=== PATIENT | male | born 1965 | race Caucasian/White ===

== ENCOUNTER 2021-05-05 18:54 | Inpatient (IN) ==
[2021-05-06] MEDS ORDERED: Naloxone 0.4 MG/ML INJ IVP PRN (01:22)
[2021-05-06] MEDS ORDERED: *HR* LORazepam 2 MG/ML VIAL IVP PRN (01:23)
[2021-05-06] MEDS ORDERED: *HR* Labetalol 20 MG/4 ML SYRINGE IVP ONE ×3 (01:25→09:33)
[2021-05-06] MEDS ORDERED: Acetaminophen 325 MG TABLET PO PRN (01:26)
[2021-05-06] MEDS ORDERED: Ondansetron 4 MG/2 ML VIAL IVP PRN (01:26)
[2021-05-06] MEDS ORDERED: 0.9 % Sodium Chloride 1,000 ML IVC SCH ×2 (01:30→02:56)
[2021-05-06] MEDS: *HR* LORazepam 2 MG/ML VIAL IVP PRN ×2 (01:45→03:44)
[2021-05-06] MEDS: Dexmedetomidine HCl 400 MCG/100 ML MLS IVC SCH ×2 (03:15→21:29)
[2021-05-06] MEDS ORDERED: Ipratropium/Albuterol Neb 3 ML IH SCH (04:00)
[2021-05-06] MEDS ORDERED: Furosemide 40 MG/4 ML VIAL IVP ONE (04:00)
[2021-05-06] MEDS ORDERED: Vancomycin 1,250 MG/262.5 ML IV.SOLN IVPB SCH (04:00)
[2021-05-06 04:10] LABS: ABG Base Excess -2 mEq/L (-2 to 3); ABG HCO3 24 mEq/L (21-27); ABG Oxygen Saturation 89 % (95-98); ABG PCO2 41 mmHg (35-45); ABG PH 7.37 pH Units (7.32-7.45); ABG PO2 57 mmHg (85-104); ABG TCO2 25 mEq/L (20-26); Blood Gas Modality BiLevel; Blood Gas Pressure Support 6 cm H2O
[2021-05-06] MEDS ORDERED: Perflutren Lipid Microsphere 1.3 ML in 0.9 % Sodium Chloride 8.7 ML IVP PRN (04:19)
[2021-05-06] MEDS: *HR* Heparin 5,000 UNIT/ML VIAL SQ SCH ×3 (04:47→21:03)
[2021-05-06] MEDS: MethylPREDNISolone 40 MG/ML VIAL IVP SCH ×4 (04:47→23:08)
[2021-05-06] MEDS: Piperacillin/Tazobactam 3.375 GM in 0.9 % Sodium Chloride Mini Bag 100 ML IVPB SCH ×4 (04:48→23:07)
[2021-05-06 05:29] LABS: Hematocrit 35.7 % (37.5-50.1); Immature Granulocytes % 0.7 % (0-4); Lymphocytes # 0.5 K/mcL (0.6-4.6); Lymphocytes % 2.3 %; Mean Corpuscular HGB Conc 33.6 g/dL (31.6-35.5); Mean Corpuscular Hemoglobin 31.2 pg (28.0-33.3); Mean Corpuscular Volume 92.7 fL (83.0-100.0); Mean Platelet Volume 9.5 fL (9.4-12.4); Monocytes # 1.1 K/mcL (0.0-1.3); Monocytes % 5.3 %; Neutrophils # 18.5 K/mcL (1.6-8.9); Platelet Count 318 K/mcL (140-400); Red Blood Count 3.85 M/mcL (4.19-5.50); Red Cell Distribution Width 13.2 % (11.5-14.5); Segmented Neutrophils % 91.7 %; White Blood Count 20.2 K/mcL (4.3-11.1)
[2021-05-06 05:56] LABS: Alanine Aminotransferase 18 Units/L (7-52); Albumin 3.2 g/dL (3.5-5.7); Albumin/Globulin Ratio 0.9 (1.1-2.2); Alkaline Phosphatase 89 Units/L (34-104); Aspartate Amino Transferase 19 Units/L (13-39); BUN/Creatinine Ratio 28 (6-26); Bilirubin,Total 0.4 mg/dL (0.3-1.0); Blood Urea Nitrogen 15 mg/dL (6-20); Calcium 8.3 mg/dL (8.6-10.3); Carbon Dioxide 23 mEq/L (23-29); Chloride 104 mEq/L (98-107); Globulin 3.6 g/dL (2.4-3.5); Glucose 151 mg/dL (70-105); Osmolality,Calculated 280 (280-300); Potassium 4.4 mEq/L (3.5-5.1); Sodium 133 mEq/L (136-145); Total Protein 6.8 g/dL (6.4-8.9); Troponin I 0.16 ng/mL (< 0.04); eGFR For African Americans > 60 (> 60); eGFR For Non-African Americans > 60 (> 60)
[2021-05-06] MEDS: Levalbuterol Neb 1.25 MG/3 ML IH SCH ×5 (07:35→23:27)
[2021-05-06] MEDS: Ipratropium Neb 0.5 MG NEBULIZER IH SCH ×5 (07:35→23:28)
[2021-05-06] MEDS ORDERED: Ipratropium 1 PUFF INHALER IH SCH (08:00)
[2021-05-06] MEDS: Azithromycin 500 MG in 0.9 % Sodium Chloride 250 ML IVPB SCH (08:15)
[2021-05-06] MEDS: Folic Acid 1 MG in 0.9 % Sodium Chloride 50 ML IVPB SCH (17:03)
[2021-05-06] MEDS ORDERED: Thiamine (B-1) 100 MG, Folic Acid 1 MG, MVI, adult with vitamin K 10 ML in 0.9 % Sodi... IVPB SCH (18:00)
[2021-05-06] MEDS: Thiamine (B-1) 100 MG in 0.9 % Sodium Chloride 50 ML IVPB SCH (18:32)
[2021-05-07] MEDS: Dexmedetomidine HCl 400 MCG/100 ML MLS IVC SCH (01:37)
[2021-05-07] MEDS: *HR* LORazepam 2 MG/ML VIAL IVP PRN (04:02)
[2021-05-07] MEDS: Levalbuterol Neb 1.25 MG/3 ML IH SCH ×6 (04:04→23:38)
[2021-05-07] MEDS: Ipratropium Neb 0.5 MG NEBULIZER IH SCH ×6 (04:04→23:38)
[2021-05-07] MEDS: *HR* Heparin 5,000 UNIT/ML VIAL SQ SCH ×3 (04:57→21:27)
[2021-05-07] MEDS: MethylPREDNISolone 40 MG/ML VIAL IVP SCH ×3 (04:57→17:13)
[2021-05-07 05:13] LABS: Basophils % 0.1 %; Hematocrit 35.4 % (37.5-50.1); Hemoglobin 11.3 g/dL (12.9-16.9); Immature Granulocytes % 0.5 % (0-4); Lymphocytes # 0.4 K/mcL (0.6-4.6); Lymphocytes % 2.9 %; Mean Corpuscular HGB Conc 31.9 g/dL (31.6-35.5); Mean Corpuscular Volume 93.9 fL (83.0-100.0); Mean Platelet Volume 9.6 fL (9.4-12.4); Monocytes # 0.9 K/mcL (0.0-1.3); Monocytes % 6.6 %; Platelet Count 334 K/mcL (140-400); Red Blood Count 3.77 M/mcL (4.19-5.50); Red Cell Distribution Width 13.3 % (11.5-14.5); Segmented Neutrophils % 89.9 %; White Blood Count 13.3 K/mcL (4.3-11.1)
[2021-05-07 05:31] LABS: Alanine Aminotransferase 26 Units/L (7-52); Albumin/Globulin Ratio 0.8 (1.1-2.2); Alkaline Phosphatase 77 Units/L (34-104); Aspartate Amino Transferase 26 Units/L (13-39); BUN/Creatinine Ratio 34 (6-26); Bilirubin,Total 0.5 mg/dL (0.3-1.0); Blood Urea Nitrogen 23 mg/dL (6-20); Calcium 8.4 mg/dL (8.6-10.3); Carbon Dioxide 24 mEq/L (23-29); Chloride 105 mEq/L (98-107); Globulin 3.7 g/dL (2.4-3.5); Glucose 152 mg/dL (70-105); Magnesium 2.2 mg/dL (1.6-2.6); Osmolality,Calculated 289 (280-300); Potassium 3.9 mEq/L (3.5-5.1); Sodium 136 mEq/L (136-145); Total Protein 6.7 g/dL (6.4-8.9); eGFR For African Americans > 60 (> 60); eGFR For Non-African Americans > 60 (> 60)
[2021-05-07] MEDS: Piperacillin/Tazobactam 3.375 GM in 0.9 % Sodium Chloride Mini Bag 100 ML IVPB SCH ×2 (08:35→15:46)
[2021-05-07] MEDS: Azithromycin 500 MG in 0.9 % Sodium Chloride 250 ML IVPB SCH (08:36)
[2021-05-07] MEDS: Thiamine (B-1) 100 MG in 0.9 % Sodium Chloride 50 ML IVPB SCH (08:51)
[2021-05-07] MEDS: *HR* Labetalol 20 MG/4 ML SYRINGE IVP PRN ×2 (08:51→11:13)
[2021-05-07] MEDS ORDERED: lisinopriL 20 MG TABLET PO SCH (09:00)
[2021-05-07] MEDS ORDERED: *HR* Labetalol 20 MG/4 ML SYRINGE IVP STA (11:10)
[2021-05-07] MEDS: amLODIPine 5 MG TABLET PO SCH (12:23)
[2021-05-07] MEDS: Nicotine 21 MG PATCH.TD24 TD SCH (12:24)
[2021-05-07] MEDS: niCARdipine 20 MG/200 ML MLS IVC SCH ×6 (14:10→22:41)
[2021-05-07] MEDS ORDERED: *HR* Labetalol 20 MG/4 ML SYRINGE IVP ONE (14:50)
[2021-05-07] MEDS: *HR* HYDROcodone/Acet 5/325 mg TABLET PO PRN ×2 (15:07→21:27)
[2021-05-07] MEDS: hydrALAZINE 25 MG TABLET PO SCH ×2 (15:46→19:22)
[2021-05-07] MEDS: *HR* Labetalol 20 MG/4 ML SYRINGE IVP SCH (17:13)
[2021-05-07] MEDS: Folic Acid 1 MG in 0.9 % Sodium Chloride 50 ML IVPB SCH (17:48)
[2021-05-08] MEDS: *HR* LORazepam 2 MG/ML VIAL IVP PRN (00:31)
[2021-05-08] MEDS: MethylPREDNISolone 40 MG/ML VIAL IVP SCH ×4 (00:31→17:08)
[2021-05-08] MEDS: Piperacillin/Tazobactam 3.375 GM in 0.9 % Sodium Chloride Mini Bag 100 ML IVPB SCH ×3 (00:32→15:26)
[2021-05-08] MEDS: *HR* Labetalol 20 MG/4 ML SYRINGE IVP SCH ×3 (00:32→11:53)
[2021-05-08] MEDS: niCARdipine 20 MG/200 ML MLS IVC SCH ×3 (03:02→21:00)
[2021-05-08 03:25] LABS: Basophils % 0.1 %; Hematocrit 36.4 % (37.5-50.1); Hemoglobin 12.1 g/dL (12.9-16.9); Immature Granulocytes % 0.5 % (0-4); Lymphocytes # 0.4 K/mcL (0.6-4.6); Lymphocytes % 2.7 %; Mean Corpuscular HGB Conc 33.2 g/dL (31.6-35.5); Mean Corpuscular Hemoglobin 30.9 pg (28.0-33.3); Mean Corpuscular Volume 92.9 fL (83.0-100.0); Mean Platelet Volume 9.4 fL (9.4-12.4); Monocytes # 0.7 K/mcL (0.0-1.3); Monocytes % 5.4 %; Neutrophils # 11.6 K/mcL (1.6-8.9); Platelet Count 390 K/mcL (140-400); Red Blood Count 3.92 M/mcL (4.19-5.50); Red Cell Distribution Width 13.4 % (11.5-14.5); Segmented Neutrophils % 91.3 %; White Blood Count 12.8 K/mcL (4.3-11.1)
[2021-05-08 03:44] LABS: Alanine Aminotransferase 24 Units/L (7-52); Albumin 3.1 g/dL (3.5-5.7); Albumin/Globulin Ratio 0.9 (1.1-2.2); Alkaline Phosphatase 72 Units/L (34-104); Aspartate Amino Transferase 17 Units/L (13-39); BUN/Creatinine Ratio 43 (6-26); Bilirubin,Total 0.6 mg/dL (0.3-1.0); Blood Urea Nitrogen 23 mg/dL (6-20); Calcium 8.4 mg/dL (8.6-10.3); Carbon Dioxide 22 mEq/L (23-29); Chloride 106 mEq/L (98-107); Globulin 3.6 g/dL (2.4-3.5); Glucose 146 mg/dL (70-105); Osmolality,Calculated 284 (280-300); Potassium 3.6 mEq/L (3.5-5.1); Sodium 134 mEq/L (136-145); Total Protein 6.7 g/dL (6.4-8.9); eGFR For African Americans > 60 (> 60); eGFR For Non-African Americans > 60 (> 60)
[2021-05-08] MEDS: Levalbuterol Neb 1.25 MG/3 ML IH SCH ×5 (03:54→20:36)
[2021-05-08] MEDS: Ipratropium Neb 0.5 MG NEBULIZER IH SCH ×5 (03:54→20:36)
[2021-05-08] MEDS: *HR* Heparin 5,000 UNIT/ML VIAL SQ SCH ×3 (05:58→21:04)
[2021-05-08] MEDS: Azithromycin 500 MG in 0.9 % Sodium Chloride 250 ML IVPB SCH (09:03)
[2021-05-08] MEDS: hydrALAZINE 25 MG TABLET PO SCH ×3 (09:04→20:33)
[2021-05-08] MEDS: amLODIPine 5 MG TABLET PO SCH (09:04)
[2021-05-08] MEDS: Nicotine 21 MG PATCH.TD24 TD SCH (09:07)
[2021-05-08] MEDS: *HR* HYDROcodone/Acet 5/325 mg TABLET PO PRN ×2 (09:08→17:07)
[2021-05-08] MEDS: Thiamine (B-1) 100 MG in 0.9 % Sodium Chloride 50 ML IVPB SCH (12:05)
[2021-05-08] MEDS ORDERED: *HR* Labetalol 20 MG/4 ML SYRINGE IVP PRN (12:36)
[2021-05-08] MEDS ORDERED: Piperacillin/Tazobactam 3.375 GM VIAL ONE (15:26)
[2021-05-08] MEDS: Folic Acid 1 MG in 0.9 % Sodium Chloride 50 ML IVPB SCH (18:52)
[2021-05-08] MEDS: Metoprolol 100 MG TABLET PO SCH (20:33)
[2021-05-09] MEDS: Ipratropium Neb 0.5 MG NEBULIZER IH SCH ×3 (00:51→07:38)
[2021-05-09] MEDS: Levalbuterol Neb 1.25 MG/3 ML IH SCH ×3 (00:51→07:38)
[2021-05-09] MEDS: niCARdipine 20 MG/200 ML MLS IVC SCH ×2 (01:10→05:20)
[2021-05-09] MEDS: Piperacillin/Tazobactam 3.375 GM in 0.9 % Sodium Chloride Mini Bag 100 ML IVPB SCH (02:13)
[2021-05-09] MEDS: MethylPREDNISolone 40 MG/ML VIAL IVP SCH ×2 (02:13→05:21)
[2021-05-09 03:29] LABS: Basophils % 0.1 %; Hematocrit 38.6 % (37.5-50.1); Immature Granulocytes % 0.9 % (0-4); Lymphocytes # 0.5 K/mcL (0.6-4.6); Lymphocytes % 4.3 %; Mean Corpuscular HGB Conc 33.7 g/dL (31.6-35.5); Mean Corpuscular Hemoglobin 31.3 pg (28.0-33.3); Mean Corpuscular Volume 92.8 fL (83.0-100.0); Mean Platelet Volume 9.4 fL (9.4-12.4); Monocytes # 0.9 K/mcL (0.0-1.3); Monocytes % 7.3 %; Neutrophils # 11.1 K/mcL (1.6-8.9); Platelet Count 469 K/mcL (140-400); Red Blood Count 4.16 M/mcL (4.19-5.50); Red Cell Distribution Width 13.3 % (11.5-14.5); Segmented Neutrophils % 87.4 %; White Blood Count 12.6 K/mcL (4.3-11.1)
[2021-05-09 03:46] LABS: BUN/Creatinine Ratio 40 (6-26); Blood Urea Nitrogen 23 mg/dL (6-20); Calcium 8.5 mg/dL (8.6-10.3); Carbon Dioxide 24 mEq/L (23-29); Chloride 102 mEq/L (98-107); Glucose 139 mg/dL (70-105); Osmolality,Calculated 286 (280-300); Potassium 3.6 mEq/L (3.5-5.1); Sodium 135 mEq/L (136-145); eGFR For African Americans > 60 (> 60); eGFR For Non-African Americans > 60 (> 60)
[2021-05-09] MEDS: *HR* Heparin 5,000 UNIT/ML VIAL SQ SCH (05:21)
[2021-05-09 07:31] VITALS: BP 157/76; PULSE 110; TEMP 98.5; O2SAT 86
[2021-05-09] MEDS: amLODIPine 5 MG TABLET PO SCH (10:01)
[2021-05-09] MEDS: Metoprolol 100 MG TABLET PO SCH (10:01)
[2021-05-09] MEDS: hydrALAZINE 25 MG TABLET PO SCH (10:01)
== END 2021-05-09 10:39 | disposition left against medical advice (07) | DRG 871 ==
LOC: 2NNU 05-06 00:56 → SUATTDRO 05-06 00:56
PROVIDERS: ADMIT Student in an Organized Health Care Education/Training Program; ATTEND Family Medicine

== ENCOUNTER 2021-06-09 19:06 | Inpatient (IN) ==
[2021-06-09] MEDS ORDERED: Melatonin 3 MG TABLET PO PRN (22:00)
[2021-06-09] MEDS ORDERED: MOM Conc 10 ML UD.LIQ PO PRN (22:00)
[2021-06-09] MEDS ORDERED: Acetaminophen 325 MG TABLET PO PRN (22:00)
[2021-06-09] MEDS ORDERED: Naloxone 0.4 MG/ML INJ IVP PRN (22:00)
[2021-06-09] MEDS ORDERED: *HR* HYDROcodone/Acet 5/325 mg TABLET PO PRN (22:00)
[2021-06-09] MEDS ORDERED: Ondansetron ODT 4 MG TAB.RAPDIS SL PRN (22:00)
[2021-06-10] MEDS ORDERED: Vancomycin 1,250 MG/262.5 ML IV.SOLN IVPB SCH (01:00)
[2021-06-10] MEDS ORDERED: Albumin 25% 25gram/100mL 25 GM/100 ML IV.SOLN IVPB ONE (02:14)
[2021-06-10] MEDS ORDERED: *HR* LORazepam 2 MG/ML VIAL IVP PRN ×2 (02:17→19:58)
[2021-06-10 03:49] LABS: Alanine Aminotransferase 20 Units/L (7-52); Albumin 2.5 g/dL (3.5-5.7); Albumin/Globulin Ratio 0.7 (1.1-2.2); Alkaline Phosphatase 346 Units/L (34-104); Aspartate Amino Transferase 20 Units/L (13-39); BUN/Creatinine Ratio 17 (6-26); Bilirubin,Total 2.3 mg/dL (0.3-1.0); Blood Urea Nitrogen 6 mg/dL (6-20); C-Reactive Protein 78 mg/L (Less than 10); Calcium 7.7 mg/dL (8.6-10.3); Carbon Dioxide 28 mEq/L (23-29); Chloride 90 mEq/L (98-107); Globulin 3.8 g/dL (2.4-3.5); Glucose 109 mg/dL (70-105); Iron 47 mcg/dL (65-175); Osmolality,Calculated 266 (280-300); Potassium 2.6 mEq/L (3.5-5.1); Sodium 129 mEq/L (136-145); Total Protein 6.3 g/dL (6.4-8.9); eGFR For African Americans > 60 (> 60); eGFR For Non-African Americans > 60 (> 60)
[2021-06-10] MEDS ORDERED: Furosemide 40 MG/4 ML VIAL IVP SCH (04:00)
[2021-06-10 04:03] LABS: Ferritin 413 ng/mL (20-250)
[2021-06-10 04:09] LABS: Folate 10.8 ng/mL (3.0-16.0)
[2021-06-10 04:25] LABS: Basophils # 0.1 K/mcL (0.0-0.2); Basophils % 0.4 %; Eosinophils # 0.2 K/mcL (0.0-0.6); Eosinophils % 1.1 %; Hematocrit 23.4 % (37.5-50.1); Hemoglobin 7.7 g/dL (12.9-16.9); Immature Granulocytes % 1.3 % (0-4); Lymphocytes # 1.1 K/mcL (0.6-4.6); Lymphocytes % 6.7 %; Mean Corpuscular HGB Conc 32.9 g/dL (31.6-35.5); Mean Corpuscular Hemoglobin 28.7 pg (28.0-33.3); Mean Corpuscular Volume 87.3 fL (83.0-100.0); Mean Platelet Volume 10.3 fL (9.4-12.4); Monocytes # 0.8 K/mcL (0.0-1.3); Monocytes % 4.9 %; Neutrophils # 14.2 K/mcL (1.6-8.9); Nucleated Red Blood Cells 0.2 /100 WBC (0); Platelet Count 497 K/mcL (140-400); Red Blood Count 2.68 M/mcL (4.19-5.50); Red Cell Distribution Width 20.7 % (11.5-14.5); Segmented Neutrophils % 85.6 %; White Blood Count 16.6 K/mcL (4.3-11.1)
[2021-06-10 04:27] LABS: Activated Partial Thrombo Time 31.3 Seconds (26.0-36.0); INR 1.2; Prothrombin Time 13.9 Seconds (9.4-12.1)
[2021-06-10] MEDS ORDERED: Ipratropium/Albuterol Neb 3 ML IH PRN ×2 (05:22→19:58)
[2021-06-10] MEDS ORDERED: Isovue-370 500 ML BOTTLE IVP ONE ×2 (05:38→19:58)
[2021-06-10 05:47] LABS: % Iron Saturation 21 % (20-55); Transferrin 163 mg/dL (203-362)
[2021-06-10] MEDS ORDERED: Pantoprazole 40 MG VIAL IVP SCH (06:00)
[2021-06-10] MEDS: Piperacillin/Tazobactam 3.375 GM in 0.9 % Sodium Chloride Mini Bag 100 ML IVPB SCH ×2 (07:59→19:32)
[2021-06-10] MEDS: Vancomycin 1,250 MG/262.5 ML IV.SOLN IVPB SCH ×2 (11:43→19:36)
[2021-06-10] MEDS ORDERED: *HR* FentaNYL (PF) 100 MCG/2 ML VIAL IVP PRN ×2 (13:17→19:58)
[2021-06-10] MEDS ORDERED: Ondansetron 4 MG/2 ML VIAL IVP PRN ×2 (13:17→19:58)
[2021-06-10] MEDS ORDERED: *HR* FentaNYL (PF) 100 MCG/2 ML VIAL ONE (13:31)
[2021-06-10] MEDS ORDERED: *HR* Midazolam HCl 2 MG/2 ML VIAL ONE (13:31)
[2021-06-10] MEDS ORDERED: *HR* Propofol 200 MG/20 ML VIAL IVP ONE (13:31)
[2021-06-10] MEDS ORDERED: Lidocaine Jelly 11 ml Syringe ONE (13:34)
[2021-06-10] MEDS ORDERED: *HR* Rocuronium Bromide 50 MG/5 ML VIAL ONE (14:11)
[2021-06-10] MEDS ORDERED: Ondansetron 4 MG/2 ML VIAL ONE (14:15)
[2021-06-10] MEDS ORDERED: Ketamine HCL *QUVA* 50mg (1mL) SYRINGE ONE (14:18)
[2021-06-10] MEDS ORDERED: EPHEDrine 50 MG/ML VIAL ONE (14:28)
[2021-06-10] MEDS ORDERED: *HR* Vasopressin 20 UNIT/ML VIAL ONE (14:45)
[2021-06-10] MEDS ORDERED: *HR* OxyCODONE/APAP 7.5/325 TABLET PO PRN (15:19)
[2021-06-10] MEDS ORDERED: Sugammadex Sodium 200 MG/2 ML VIAL IV ONE (15:25)
[2021-06-10] MEDS ORDERED: 0.9 % Sodium Chloride 1,000 ML IVC SCH (15:30)
[2021-06-10] MEDS: *HR* HYDROmorphone PF 0.5 MG/0.5 ML SYRINGE IVP PRN ×4 (15:51→16:54)
[2021-06-10] MEDS ORDERED: Ringers Solution, Lactated 1,000 ML ONE (15:53)
[2021-06-10] MEDS ORDERED: *HR* HYDROmorphone (PF) 1 MG/ML SYRINGE IVP ONE (17:26)
[2021-06-10] MEDS ORDERED: *HR* HYDROmorphone (PF) 1 MG/ML SYRINGE IVP SCH (17:45)
[2021-06-10] MEDS ORDERED: Naloxone 0.4 MG/ML INJ IVP PRN (19:58)
[2021-06-10] MEDS ORDERED: Acetaminophen 325 MG TABLET PO PRN (19:58)
[2021-06-10] MEDS ORDERED: Metoprolol 100 MG TABLET PO SCH (21:00)
[2021-06-10] MEDS: Gabapentin 300 MG CAPSULE PO SCH (21:00)
[2021-06-10] MEDS: Metoprolol 100 MG TABLET PO SCH (21:00)
[2021-06-10] MEDS: 0.9 % Sodium Chloride 1,000 ML IVC SCH (21:00)
[2021-06-10] MEDS: hydrALAZINE 25 MG TABLET PO SCH (21:00)
[2021-06-10] MEDS ORDERED: Gabapentin 300 MG CAPSULE PO SCH (21:00)
[2021-06-10] MEDS ORDERED: hydrALAZINE 25 MG TABLET PO SCH (21:00)
[2021-06-10] MEDS: *HR* OxyCODONE/APAP 7.5/325 TABLET PO PRN (22:34)
[2021-06-11] MEDS: Piperacillin/Tazobactam 3.375 GM in 0.9 % Sodium Chloride Mini Bag 100 ML IVPB SCH ×3 (00:06→15:27)
[2021-06-11] MEDS: *HR* OxyCODONE/APAP 7.5/325 TABLET PO PRN ×5 (02:07→21:38)
[2021-06-11] MEDS ORDERED: Vancomycin 1,250 MG/262.5 ML IV.SOLN IVPB SCH (03:00)
[2021-06-11 07:16] LABS: Basophils % 0.1 %; Hematocrit 21.8 % (37.5-50.1); Hemoglobin 7.5 g/dL (12.9-16.9); Immature Granulocytes % 1.1 % (0-4); Lymphocytes # 0.9 K/mcL (0.6-4.6); Lymphocytes % 4.3 %; Mean Corpuscular HGB Conc 34.4 g/dL (31.6-35.5); Mean Corpuscular Hemoglobin 31.8 pg (28.0-33.3); Mean Corpuscular Volume 92.4 fL (83.0-100.0); Monocytes % 4.8 %; Neutrophils # 18.4 K/mcL (1.6-8.9); Platelet Count 565 K/mcL (140-400); Red Blood Count 2.36 M/mcL (4.19-5.50); Red Cell Distribution Width 20.8 % (11.5-14.5); Segmented Neutrophils % 89.7 %; White Blood Count 20.5 K/mcL (4.3-11.1)
[2021-06-11 07:18] LABS: Alanine Aminotransferase 18 Units/L (7-52); Albumin/Globulin Ratio 0.8 (1.1-2.2); Alkaline Phosphatase 332 Units/L (34-104); Aspartate Amino Transferase 16 Units/L (13-39); BUN/Creatinine Ratio 22 (6-26); Bilirubin,Total 1.9 mg/dL (0.3-1.0); Blood Urea Nitrogen 11 mg/dL (6-20); Carbon Dioxide 29 mEq/L (23-29); Chloride 91 mEq/L (98-107); Globulin 3.8 g/dL (2.4-3.5); Glucose 129 mg/dL (70-105); Osmolality,Calculated 265 (280-300); Potassium 3.7 mEq/L (3.5-5.1); Sodium 127 mEq/L (136-145); Total Protein 6.8 g/dL (6.4-8.9); eGFR For African Americans > 60 (> 60); eGFR For Non-African Americans > 60 (> 60)
[2021-06-11 07:32] LABS: Magnesium 1.7 mg/dL (1.6-2.6)
[2021-06-11] MEDS: Metoprolol 100 MG TABLET PO SCH ×2 (08:33→20:15)
[2021-06-11] MEDS: Gabapentin 300 MG CAPSULE PO SCH ×3 (08:33→20:15)
[2021-06-11] MEDS: Lisinopril-HCTZ 20-12.5mg TABLET PO SCH (08:34)
[2021-06-11] MEDS: lisinopriL 20 MG TABLET PO SCH (08:34)
[2021-06-11] MEDS: hydrALAZINE 25 MG TABLET PO SCH ×3 (08:34→20:15)
[2021-06-11] MEDS ORDERED: lisinopriL 20 MG TABLET PO SCH (09:00)
[2021-06-11] MEDS: Nicotine 21 MG PATCH.TD24 TD SCH (09:41)
[2021-06-11] MEDS: 0.9 % Sodium Chloride 1,000 ML IVC SCH (12:54)
[2021-06-11] MEDS ORDERED: Simethicone 80 MG TAB.CHEW PO PRN (19:47)
[2021-06-12] MEDS: 0.9 % Sodium Chloride 1,000 ML IVC SCH (02:53)
[2021-06-12] MEDS: *HR* OxyCODONE/APAP 7.5/325 TABLET PO PRN ×4 (02:53→19:37)
[2021-06-12] MEDS: Piperacillin/Tazobactam 3.375 GM in 0.9 % Sodium Chloride Mini Bag 100 ML IVPB SCH ×3 (03:05→19:36)
[2021-06-12 07:20] LABS: Basophils # 0.1 K/mcL (0.0-0.2); Basophils % 0.2 %; Eosinophils # 0.1 K/mcL (0.0-0.6); Eosinophils % 0.5 %; Hemoglobin 7.7 g/dL (12.9-16.9); Immature Granulocytes % 1.3 % (0-4); Lymphocytes # 1.1 K/mcL (0.6-4.6); Lymphocytes % 4.7 %; Mean Corpuscular Hemoglobin 32.5 pg (28.0-33.3); Mean Corpuscular Volume 92.8 fL (83.0-100.0); Mean Platelet Volume 9.9 fL (9.4-12.4); Monocytes # 0.9 K/mcL (0.0-1.3); Monocytes % 3.8 %; Neutrophils # 20.3 K/mcL (1.6-8.9); Platelet Count 545 K/mcL (140-400); Red Blood Count 2.37 M/mcL (4.19-5.50); Red Cell Distribution Width 21.4 % (11.5-14.5); Segmented Neutrophils % 89.5 %; White Blood Count 22.7 K/mcL (4.3-11.1)
[2021-06-12 07:31] LABS: Alanine Aminotransferase 19 Units/L (7-52); Albumin 2.8 g/dL (3.5-5.7); Albumin/Globulin Ratio 0.8 (1.1-2.2); Alkaline Phosphatase 283 Units/L (34-104); Aspartate Amino Transferase 20 Units/L (13-39); BUN/Creatinine Ratio 19 (6-26); Bilirubin,Total 1.6 mg/dL (0.3-1.0); Blood Urea Nitrogen 8 mg/dL (6-20); Calcium 7.8 mg/dL (8.6-10.3); Carbon Dioxide 26 mEq/L (23-29); Chloride 94 mEq/L (98-107); Globulin 3.6 g/dL (2.4-3.5); Glucose 104 mg/dL (70-105); Magnesium 1.6 mg/dL (1.6-2.6); Osmolality,Calculated 263 (280-300); Potassium 3.6 mEq/L (3.5-5.1); Sodium 127 mEq/L (136-145); Total Protein 6.4 g/dL (6.4-8.9); eGFR For African Americans > 60 (> 60); eGFR For Non-African Americans > 60 (> 60)
[2021-06-12] MEDS: hydrALAZINE 25 MG TABLET PO SCH ×3 (08:17→19:38)
[2021-06-12] MEDS: lisinopriL 20 MG TABLET PO SCH (08:17)
[2021-06-12] MEDS: Gabapentin 300 MG CAPSULE PO SCH ×3 (08:18→19:37)
[2021-06-12] MEDS: Metoprolol 100 MG TABLET PO SCH ×2 (08:18→19:38)
[2021-06-12] MEDS: Lisinopril-HCTZ 20-12.5mg TABLET PO SCH (08:18)
[2021-06-12] MEDS: Nicotine 21 MG PATCH.TD24 TD SCH (08:18)
[2021-06-12] MEDS ORDERED: Furosemide 40 MG/4 ML VIAL ONE (09:11)
[2021-06-12] MEDS ORDERED: Furosemide 40 MG/4 ML VIAL IVP ONE (09:31)
[2021-06-12] MEDS: Magnesium Oxide 400 MG TABLET PO SCH (10:52)
[2021-06-12] MEDS: Melatonin 3 MG TABLET PO PRN (19:38)
[2021-06-13] MEDS: *HR* OxyCODONE/APAP 7.5/325 TABLET PO PRN ×2 (01:57→07:49)
[2021-06-13 02:22] LABS: Basophils % 0.3 %; Hemoglobin 8.8 g/dL (12.9-16.9); Immature Granulocytes % 1.3 % (0-4); Mean Platelet Volume 9.5 fL (9.4-12.4)
[2021-06-13 02:23] LABS: Basophils # 0.1 K/mcL (0.0-0.2); Eosinophils # 0.1 K/mcL (0.0-0.6); Eosinophils % 0.5 %; Hematocrit 25.1 % (37.5-50.1); Lymphocytes # 0.9 K/mcL (0.6-4.6); Lymphocytes % 3.4 %; Mean Corpuscular HGB Conc 35.1 g/dL (31.6-35.5); Mean Corpuscular Hemoglobin 32.7 pg (28.0-33.3); Mean Corpuscular Volume 93.3 fL (83.0-100.0); Monocytes # 0.7 K/mcL (0.0-1.3); Monocytes % 2.8 %; Neutrophils # 24.2 K/mcL (1.6-8.9); Platelet Count 606 K/mcL (140-400); Red Blood Count 2.69 M/mcL (4.19-5.50); Red Cell Distribution Width 21.9 % (11.5-14.5); Segmented Neutrophils % 91.7 %; White Blood Count 26.4 K/mcL (4.3-11.1)
[2021-06-13 02:41] LABS: Alanine Aminotransferase 21 Units/L (7-52); Albumin 2.9 g/dL (3.5-5.7); Albumin/Globulin Ratio 0.7 (1.1-2.2); Alkaline Phosphatase 286 Units/L (34-104); Aspartate Amino Transferase 22 Units/L (13-39); BUN/Creatinine Ratio 18 (6-26); Bilirubin,Total 1.7 mg/dL (0.3-1.0); Blood Urea Nitrogen 10 mg/dL (6-20); Calcium 8.4 mg/dL (8.6-10.3); Carbon Dioxide 27 mEq/L (23-29); Chloride 93 mEq/L (98-107); Glucose 157 mg/dL (70-105); Osmolality,Calculated 266 (280-300); Potassium 3.6 mEq/L (3.5-5.1); Sodium 127 mEq/L (136-145); Total Protein 6.9 g/dL (6.4-8.9); eGFR For African Americans > 60 (> 60); eGFR For Non-African Americans > 60 (> 60)
[2021-06-13] MEDS: Piperacillin/Tazobactam 3.375 GM in 0.9 % Sodium Chloride Mini Bag 100 ML IVPB SCH ×3 (03:42→19:26)
[2021-06-13] MEDS: Gabapentin 300 MG CAPSULE PO SCH ×3 (07:49→19:25)
[2021-06-13] MEDS: Nicotine 21 MG PATCH.TD24 TD SCH (07:49)
[2021-06-13] MEDS: Metoprolol 100 MG TABLET PO SCH ×2 (07:49→19:25)
[2021-06-13] MEDS: lisinopriL 20 MG TABLET PO SCH (07:50)
[2021-06-13] MEDS: Lisinopril-HCTZ 20-12.5mg TABLET PO SCH (07:50)
[2021-06-13] MEDS: hydrALAZINE 25 MG TABLET PO SCH ×3 (07:50→19:25)
[2021-06-13] MEDS: Magnesium Oxide 400 MG TABLET PO SCH (07:50)
[2021-06-13] MEDS ORDERED: Furosemide 40 MG/4 ML VIAL IVP ONE (10:11)
[2021-06-13] MEDS ORDERED: Ipratropium Neb 0.5 MG NEBULIZER IH PRN (11:49)
[2021-06-13] MEDS: Ipratropium/Albuterol Neb 3 ML IH SCH ×4 (12:03→23:39)
[2021-06-13] MEDS: *HR* OxyCODONE/APAP 10/325 TABLET PO PRN ×3 (12:18→20:59)
[2021-06-13] MEDS: levoFLOXacin 750 MG/150 ML 750 MG/150 ML BAG IVPB SCH (12:19)
[2021-06-13] MEDS: MethylPREDNISolone 40 MG/ML VIAL IVP SCH (12:22)
[2021-06-13 13:35] LABS: Mycoplasma pneumoniae IgG 1.6 U/L (<=0.09)
[2021-06-14] MEDS: *HR* OxyCODONE/APAP 10/325 TABLET PO PRN ×5 (01:46→23:33)
[2021-06-14 02:02] LABS: Basophils % 0.1 %; Hematocrit 21.1 % (37.5-50.1); Hemoglobin 7.4 g/dL (12.9-16.9); Lymphocytes # 0.8 K/mcL (0.6-4.6); Lymphocytes % 3.8 %; Mean Corpuscular HGB Conc 35.1 g/dL (31.6-35.5); Mean Corpuscular Hemoglobin 32.7 pg (28.0-33.3); Mean Corpuscular Volume 93.4 fL (83.0-100.0); Mean Platelet Volume 9.8 fL (9.4-12.4); Monocytes # 0.6 K/mcL (0.0-1.3); Monocytes % 2.5 %; Neutrophils # 20.2 K/mcL (1.6-8.9); Platelet Count 508 K/mcL (140-400); Red Blood Count 2.26 M/mcL (4.19-5.50); Red Cell Distribution Width 21.2 % (11.5-14.5); Segmented Neutrophils % 92.6 %; White Blood Count 21.8 K/mcL (4.3-11.1)
[2021-06-14 02:24] LABS: Alanine Aminotransferase 20 Units/L (7-52); Albumin 2.6 g/dL (3.5-5.7); Albumin/Globulin Ratio 0.8 (1.1-2.2); Alkaline Phosphatase 221 Units/L (34-104); Aspartate Amino Transferase 22 Units/L (13-39); BUN/Creatinine Ratio 31 (6-26); Bilirubin,Total 1.4 mg/dL (0.3-1.0); Blood Urea Nitrogen 15 mg/dL (6-20); Calcium 8.1 mg/dL (8.6-10.3); Carbon Dioxide 27 mEq/L (23-29); Chloride 94 mEq/L (98-107); Globulin 3.4 g/dL (2.4-3.5); Glucose 147 mg/dL (70-105); Osmolality,Calculated 272 (280-300); Potassium 3.5 mEq/L (3.5-5.1); Sodium 129 mEq/L (136-145); eGFR For African Americans > 60 (> 60); eGFR For Non-African Americans > 60 (> 60)
[2021-06-14] MEDS: Piperacillin/Tazobactam 3.375 GM in 0.9 % Sodium Chloride Mini Bag 100 ML IVPB SCH ×3 (02:57→19:50)
[2021-06-14] MEDS: Ipratropium/Albuterol Neb 3 ML IH SCH ×6 (04:04→23:45)
[2021-06-14] MEDS: Nicotine 21 MG PATCH.TD24 TD SCH (10:56)
[2021-06-14] MEDS: hydrALAZINE 25 MG TABLET PO SCH ×3 (10:56→19:51)
[2021-06-14] MEDS: Gabapentin 300 MG CAPSULE PO SCH ×3 (10:56→19:51)
[2021-06-14] MEDS: Magnesium Oxide 400 MG TABLET PO SCH (10:56)
[2021-06-14] MEDS: lisinopriL 20 MG TABLET PO SCH (10:56)
[2021-06-14] MEDS: levoFLOXacin 750 MG/150 ML 750 MG/150 ML BAG IVPB SCH (10:56)
[2021-06-14] MEDS: Metoprolol 100 MG TABLET PO SCH ×2 (10:56→19:51)
[2021-06-14] MEDS: MethylPREDNISolone 40 MG/ML VIAL IVP SCH (10:57)
[2021-06-14] MEDS: MOM Conc 10 ML UD.LIQ PO PRN (12:52)
[2021-06-14] MEDS ORDERED: Furosemide 40 MG TABLET PO ONE (16:31)
[2021-06-15] MEDS: Piperacillin/Tazobactam 3.375 GM in 0.9 % Sodium Chloride Mini Bag 100 ML IVPB SCH ×3 (03:51→19:50)
[2021-06-15] MEDS: Ipratropium/Albuterol Neb 3 ML IH SCH ×6 (03:54→23:36)
[2021-06-15] MEDS: *HR* OxyCODONE/APAP 10/325 TABLET PO PRN ×4 (04:09→17:05)
[2021-06-15 04:14] LABS: Basophils % 0.1 %; Hematocrit 23.1 % (37.5-50.1); Hemoglobin 7.8 g/dL (12.9-16.9); Immature Granulocytes % 1.2 % (0-4); Lymphocytes # 0.9 K/mcL (0.6-4.6); Lymphocytes % 5.5 %; Mean Corpuscular HGB Conc 33.8 g/dL (31.6-35.5); Mean Corpuscular Hemoglobin 32.4 pg (28.0-33.3); Mean Corpuscular Volume 95.9 fL (83.0-100.0); Mean Platelet Volume 9.3 fL (9.4-12.4); Monocytes # 0.7 K/mcL (0.0-1.3); Monocytes % 4.2 %; Neutrophils # 14.7 K/mcL (1.6-8.9); Platelet Count 533 K/mcL (140-400); Red Blood Count 2.41 M/mcL (4.19-5.50); Red Cell Distribution Width 21.3 % (11.5-14.5); White Blood Count 16.5 K/mcL (4.3-11.1)
[2021-06-15 04:35] LABS: Alanine Aminotransferase 55 Units/L (7-52); Albumin 2.8 g/dL (3.5-5.7); Albumin/Globulin Ratio 0.8 (1.1-2.2); Alkaline Phosphatase 252 Units/L (34-104); Aspartate Amino Transferase 57 Units/L (13-39); BUN/Creatinine Ratio 25 (6-26); Bilirubin,Total 1.3 mg/dL (0.3-1.0); Blood Urea Nitrogen 12 mg/dL (6-20); Calcium 8.5 mg/dL (8.6-10.3); Carbon Dioxide 27 mEq/L (23-29); Chloride 93 mEq/L (98-107); Globulin 3.6 g/dL (2.4-3.5); Glucose 121 mg/dL (70-105); Osmolality,Calculated 267 (280-300); Potassium 3.9 mEq/L (3.5-5.1); Sodium 128 mEq/L (136-145); Total Protein 6.4 g/dL (6.4-8.9); eGFR For African Americans > 60 (> 60); eGFR For Non-African Americans > 60 (> 60)
[2021-06-15] MEDS: MOM Conc 10 ML UD.LIQ PO PRN (09:10)
[2021-06-15] MEDS: MethylPREDNISolone 40 MG/ML VIAL IVP SCH (10:00)
[2021-06-15] MEDS: Gabapentin 300 MG CAPSULE PO SCH ×3 (10:01→21:52)
[2021-06-15] MEDS: Nicotine 21 MG PATCH.TD24 TD SCH (10:01)
[2021-06-15] MEDS: hydrALAZINE 25 MG TABLET PO SCH ×3 (10:01→21:52)
[2021-06-15] MEDS: Magnesium Oxide 400 MG TABLET PO SCH (10:02)
[2021-06-15] MEDS: lisinopriL 20 MG TABLET PO SCH (10:02)
[2021-06-15] MEDS: levoFLOXacin 750 MG/150 ML 750 MG/150 ML BAG IVPB SCH (10:02)
[2021-06-15] MEDS: Metoprolol 100 MG TABLET PO SCH ×2 (10:02→21:52)
[2021-06-15] MEDS: Melatonin 3 MG TABLET PO PRN (21:52)
[2021-06-16] MEDS: Piperacillin/Tazobactam 3.375 GM in 0.9 % Sodium Chloride Mini Bag 100 ML IVPB SCH (03:17)
[2021-06-16] MEDS: Ipratropium/Albuterol Neb 3 ML IH SCH ×3 (03:39→11:39)
[2021-06-16 05:44] LABS: Basophils % 0.1 %; Eosinophils % 0.1 %; Hematocrit 26.2 % (37.5-50.1); Hemoglobin 8.7 g/dL (12.9-16.9); Immature Granulocytes % 1.3 % (0-4); Lymphocytes # 1.2 K/mcL (0.6-4.6); Lymphocytes % 7.4 %; Mean Corpuscular HGB Conc 33.2 g/dL (31.6-35.5); Mean Corpuscular Hemoglobin 31.8 pg (28.0-33.3); Mean Corpuscular Volume 95.6 fL (83.0-100.0); Mean Platelet Volume 9.6 fL (9.4-12.4); Monocytes % 6.2 %; Neutrophils # 13.9 K/mcL (1.6-8.9); Platelet Count 615 K/mcL (140-400); Red Blood Count 2.74 M/mcL (4.19-5.50); Red Cell Distribution Width 21.6 % (11.5-14.5); Segmented Neutrophils % 84.9 %; White Blood Count 16.4 K/mcL (4.3-11.1)
[2021-06-16] MEDS: *HR* OxyCODONE/APAP 10/325 TABLET PO PRN ×3 (05:51→14:52)
[2021-06-16 06:11] LABS: Alanine Aminotransferase 72 Units/L (7-52); Albumin/Globulin Ratio 0.8 (1.1-2.2); Alkaline Phosphatase 247 Units/L (34-104); Aspartate Amino Transferase 45 Units/L (13-39); BUN/Creatinine Ratio 26 (6-26); Bilirubin,Total 1.2 mg/dL (0.3-1.0); Blood Urea Nitrogen 12 mg/dL (6-20); Calcium 8.7 mg/dL (8.6-10.3); Carbon Dioxide 27 mEq/L (23-29); Chloride 96 mEq/L (98-107); Globulin 3.6 g/dL (2.4-3.5); Glucose 109 mg/dL (70-105); Osmolality,Calculated 268 (280-300); Potassium 4.3 mEq/L (3.5-5.1); Sodium 129 mEq/L (136-145); Total Protein 6.6 g/dL (6.4-8.9); eGFR For African Americans > 60 (> 60); eGFR For Non-African Americans > 60 (> 60)
[2021-06-16] MEDS ORDERED: *HR* Labetalol 20 MG/4 ML SYRINGE IVP ONE (07:17)
[2021-06-16] MEDS: Metoprolol 100 MG TABLET PO SCH (07:57)
[2021-06-16] MEDS: Gabapentin 300 MG CAPSULE PO SCH ×2 (07:57→14:52)
[2021-06-16] MEDS: hydrALAZINE 25 MG TABLET PO SCH ×2 (07:57→14:53)
[2021-06-16] MEDS: Nicotine 21 MG PATCH.TD24 TD SCH (07:57)
[2021-06-16] MEDS: lisinopriL 20 MG TABLET PO SCH (07:57)
[2021-06-16] MEDS: Magnesium Oxide 400 MG TABLET PO SCH (07:58)
[2021-06-16] MEDS ORDERED: Saline Nasal Spray 44 ML BOTTLE NS PRN (08:55)
[2021-06-16] MEDS ORDERED: predniSONE 20 MG TABLET PO SCH (09:00)
[2021-06-16] MEDS ORDERED: cefTRIAXone 2,000 MG in 0.9 % Sodium Chloride 20 ML IVP SCH (10:00)
[2021-06-16 11:37] VITALS: TEMP 99.3
[2021-06-16] MEDS ORDERED: metroNIDAZOLE 500 MG TABLET PO SCH (15:00)
[2021-06-16 15:10] VITALS: BP 170/93; PULSE 78; O2SAT 94
== END 2021-06-16 15:43 | disposition home or self-care (01) | DRG 853 ==
LOC: 2ANU → SUATTDRO 20:31 → ICNU 06-10 20:29 → 2NENU 06-11 11:30
PROVIDERS: ADMIT Internal Medicine; ATTEND Thoracic Surgery (Cardiothoracic Vascular Surgery)